=== PATIENT | male | born 1995 | race Caucasian/White ===

== ENCOUNTER 2022-12-09 18:45 | Inpatient (IN) | payer SELFPAY ==
[~2022-12-09] VITALS: Ht 167.6 cm; Wt 89.8 kg
[2022-12-10 06:16] LABS: CHLORIDE 102 mEq/L (98-107)
[2022-12-10 06:23] LABS: HEMATOCRIT. 41.6 % (42.0-52.0); HEMOGLOBIN. 14.9 g/dL (14.0-18.0); MEAN CORPUSCULAR HEMOGLOBIN 31.7 pg (28.0-32.0); MEAN CORPUSCULAR VOLUME 88.9 fL (80.0-94.0); MEAN PLATELET VOLUME 8.6 fl (7.4-10.4); PLATELET 125 x1000/uL (130-400); RED BLOOD CELL COUNT 4.69 mill/uL (4.7-6.1)
[2022-12-10] MEDS ORDERED: ONDANSETRON HCL 4MG/2ML INJ IV PRN (07:45)
[2022-12-10] MEDS ORDERED: ACETAMINOPHEN 325MG TABLET PO PRN (07:45)
[2022-12-10] MEDS ORDERED: GUAIFENESIN 200MG/10ML SUGAR FREE UDC PO PRN (07:45)
[2022-12-10] MEDS ORDERED: TRAMADOL 50MG TABLET PO PRN (07:45)
[2022-12-10] MEDS ORDERED: MAGNESIUM/ALUMINUM HYDROXIDE/SIMETHICONE 30ML UDC PO PRN (09:00)
[2022-12-10] MEDS ORDERED: DOCUSATE SODIUM 100MG CAPSULE PO PRN (09:00)
[2022-12-10 10:19] LABS: PLATELET ESTIMATE SLIGHTLY DECREASED
[2022-12-10 20:00] VITALS: BP 127/76
[2022-12-10 22:52] VITALS: BP 127/76
[2022-12-11] VITALS: BP 127/76
[2022-12-11 12:00] VITALS: BP 109/59
[2022-12-11 12:09] LABS: HEMATOCRIT. 42.7 % (42.0-52.0); MEAN CORPUSCULAR HEMOGLOBIN 31.8 pg (28.0-32.0); MEAN CORPUSCULAR VOLUME 90.8 fL (80.0-94.0); MEAN PLATELET VOLUME 8.5 fl (7.4-10.4); PLATELET 140 x1000/uL (130-400); RED BLOOD CELL COUNT 4.71 mill/uL (4.7-6.1); RED CELL DISTRIBUTION WIDTH 13.1 % (11.6-14.6)
[2022-12-11 12:19] LABS: CHLORIDE 102 mEq/L (98-107)
[2022-12-11 12:29] LABS: HDL CHOLESTEROL 33 mg/dL (40-59); LDL CHOLESTEROL 75 mg/dL (5-100)
[2022-12-11 13:05] LABS: PLATELET ESTIMATE NORMAL
[2022-12-11 16:00] VITALS: BP 102/59
[2022-12-11 20:08] VITALS: BP 119/57
[2022-12-12 00:18] VITALS: BP 128/55
[2022-12-12 04:00] VITALS: BP 130/67
[2022-12-12 08:00] VITALS: BP 111/66
[2022-12-12 12:00] VITALS: BP 113/68
[2022-12-12 16:00] VITALS: BP 113/68
[2022-12-12 20:00] VITALS: BP 103/67
[2022-12-13] VITALS: BP 123/66
[2022-12-13 04:00] VITALS: BP 127/64
[2022-12-13 08:00] VITALS: BP 102/56
[2022-12-13 16:00] VITALS: BP 118/71
[2022-12-13] MEDS ORDERED: NALOXONE HCL 0.4MG/ML VIAL IV PRN (17:00)
[2022-12-13 20:00] VITALS: BP 149/71
[2022-12-14] VITALS: BP 136/74
[2022-12-14 04:00] VITALS: BP 128/70
[2022-12-14 08:00] VITALS: BP 119/82
[2022-12-14 12:00] VITALS: BP 109/59
[2022-12-14 16:00] VITALS: BP 113/62
[2022-12-14 20:00] VITALS: BP 124/75
[2022-12-15] VITALS: BP 118/74
[2022-12-15 04:00] VITALS: BP 125/76
[2022-12-15 08:00] VITALS: BP 111/65
[2022-12-15 10:51] LABS: *HSV 1 DNA PCR NEGATIVE; *HSV 2 DNA PCR NEGATIVE
[2022-12-15 12:00] VITALS: BP 107/57
[2022-12-15 16:00] VITALS: BP 112/69
[2022-12-15 20:00] VITALS: BP 116/52
[2022-12-15] MEDS ORDERED: VALACYCLOVIR HCL 500MG TABLET PO SCH (22:00)
[2022-12-16] VITALS: BP 116/58
[2022-12-16 04:00] VITALS: BP 125/72
[2022-12-16 07:53] VITALS: BP 120/63
[2022-12-16 10:11] LABS: HIV SCREEN 4G Non Reactive (Non Reactive)
== END 2022-12-16 09:08 | disposition home or self-care (01) | DRG 723 ==
LOC: ER 18:45 → 6EST 12-10 06:46
PROVIDERS: ADMIT Hospitalist; ATTEND Hospitalist
DX: B02.8 Zoster with other complications (principal); D72.825 Bandemia; R00.0 Tachycardia, unspecified
CPT/HCPCS: 36415; 80053; 80061; 85025; 87389; 87529; 87593; 99285